=== PATIENT | male | born 1945 | race Caucasian/White ===

== ENCOUNTER 2018-01-14 11:50 | Day surgery (SDC) | payer MEDICARE ==
[~2018-01-14 11:50] MED LIST: LACTATED RINGERS 1,000 ML IV ONE
[2018-01-14] MEDS ORDERED: LACTATED RINGERS 1,000 ML IV ONE (13:04)
[2018-01-14] MEDS ORDERED: fentaNYL 250 MCG/5 ML VIAL IVP ONE (13:18)
[2018-01-14] MEDS ORDERED: MIDAZOLAM 2 MG/2 ML VIAL IVP ONE (13:18)
[2018-01-14 14:49] VITALS: BP 121/67
== END 2018-01-14 11:51 | disposition home or self-care (01) ==
LOC: SDS 11:50
PROVIDERS: ATTEND Internal Medicine
PROC: 0DJD8ZZ Inspection of Lower Intestinal Tract, Via Natural or Artificial Opening Endoscopic (ICD-10-PCS; principal; 2018-01-14 13:00)
DX: Z12.11 Encounter for screening for malignant neoplasm of colon (principal); Z53.8 Procedure and treatment not carried out for other reasons
CPT/HCPCS: 45378; J3010; J7120

== ENCOUNTER 2018-03-11 12:45 | Day surgery (SDC) | payer MEDICARE ==
[2018-03-11] MEDS ORDERED: LACTATED RINGERS 1,000 ML IV ONE (13:01)
[2018-03-11] MEDS ORDERED: MIDAZOLAM 2 MG/2 ML VIAL IVP ONE (14:17)
[2018-03-11] MEDS ORDERED: fentaNYL 250 MCG/5 ML VIAL IVP ONE (14:17)
[2018-03-11 14:56] VITALS: BP 123/72
== END 2018-03-11 12:46 | disposition home or self-care (01) ==
LOC: SDS 12:45
PROVIDERS: ATTEND Internal Medicine
PROC: 0DJD8ZZ Inspection of Lower Intestinal Tract, Via Natural or Artificial Opening Endoscopic (ICD-10-PCS; principal; 2018-03-11 14:00)
DX: Z12.11 Encounter for screening for malignant neoplasm of colon (principal); K57.30 Diverticulosis of large intestine without perforation or abscess without bleeding; K64.8 Other hemorrhoids
CPT/HCPCS: G0121; J3010; J7120

== ENCOUNTER 2018-11-13 15:36 | Outpatient (CLI) | payer MEDICARE | END 2018-11-13 15:37 | disposition critical access hospital (66) | LOC: EMS 15:36 | PROVIDERS: ATTEND Surgery | DX: R41.82 Altered mental status, unspecified (principal); S00.01XA Abrasion of scalp, initial encounter; M25.432 Effusion, left wrist; X58.XXXA Exposure to other specified factors, initial encounter | CPT/HCPCS: A0425; A0429 ==

== ENCOUNTER 2018-11-13 15:56 | Emergency (ER) | payer MEDICARE ==
--- NOTE | 2018-11-13 16:09 | ED Physician Documentation ---
PD HPI HEAD INJURY - Stated complaint Stated Complaint: FALL - Chief complaint Chief Complaint: Neuro - History obtained from History obtained from: Patient - History of Present Illness Mechanism of head injury: Blow (Not sure of the exact mechanism. He was home alone doing some chores and activities in the yard. He had come back from a metal [place] who had revised a metal ring the patient was using to repair his septic cover. He remembers returning back with it and then next remembers his and then EMS arriving to evaluate him. He is not sure the exact duration of time. His have been gone for an hour or so and returned to find him staring blankly at the garage door while he was sitting on the ground. He had an abrasion on the right top of the head and planes of pain in the left wrist. He is not able to say what had happened. He does recall feeling okay earlier in the day and did not have any remembrance of headache chest pain abdominal pain or lightheadedness.) Where head injury occurred: Home Timing - onset: How many hours ago (in the last hour or so), Today Location of injury: Right, Back Quality of pain: Aching Associated symptoms: AMS (He was having repetitive questioning as reported by his and by EMS en route.), Amnesia. No: Nausea / vomiting, Neck pain Symptoms worsen with: Palpation Contributing factors: No: Anticoagulated, Intoxicated Similar symptoms before: Has not had sx before Review of Systems Constitutional: denies: Fever, Chills Nose: denies: Rhinorrhea / runny nose, Congestion Throat: denies: Sore throat Cardiac: denies: Chest pain / pressure, Palpitations Respiratory: denies: Cough GI: denies: Abdominal Pain, Nausea, Vomiting, Diarrhea, Bloody / black stool Neurologic: reports: Headache (just at abrasion area superficially; no diffuse headache), Head injury. denies: Focal weakness, Numbness, Difficulty speaking, Near syncope Endocrine: denies: Easy bruising / bleeding PD PAST MEDICAL HISTORY - Past Medical History Cardiovascular: Hypertension, Murmur Respiratory: Sleep apnea Endocrine/Autoimmune: None GI: None : Kidney stones HEENT: Chronic hearing loss Psych: None Musculoskeletal: None Derm: None - Past Surgical History Past Surgical History: Yes HEENT: Cataracts, Other - Present Medications Home Medications: Ambulatory Orders Medication Instructions Recorded Confirmed Aspirin Chewable [[place] 81 mg PO DAILY 01/14/18 11/13/18 Aspirin] Lisinopril 10 mg PO DAILY 01/14/18 11/13/18 Multivitamin [Multiple Vitamins] 1 tab PO DAILY 03/11/18 - Allergies Allergies/Adverse Reactions: Allergies Allergy/AdvReac Type Severity Reaction Status Date / Time No Known Drug Allergies Allergy Verified 11/13/18 16:02 - Social History Does the pt smoke?: No Smoking Status: Never smoker Does the pt drink ETOH?: No Does the pt have substance abuse?: No - Immunizations Immunizations are current?: Yes - POLST Patient has POLST: No PD ED PE NORMAL - Vitals Vital signs reviewed: Yes - General General: Alert and oriented X 3, Well developed/nourished - HEENT HEENT: PERRL, EOMI, Pharynx benign, Other (right posterior top of head with abrasion, no laceration, and local tenderness. Neck full ROM without pain. 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, No motor deficit, No sensory deficit, Normal speech Eye Opening: Spontaneous Motor: Obeys Commands Verbal: Oriented GCS Score: 15 - Psych Psych: Normal mood Results - Vitals Vitals: Vital Signs - 24 hr 11/13/18 11/13/18 15:58 17:49 Temperature 36.0 C L Heart Rate 73 73 Respiratory 15 21 Rate Blood Pressure 190/110 H 148/90 H O2 Saturation 99 99 Oxygen O2 Source Room air - Labs Labs: Laboratory Tests 11/13/18 11/13/18 16:19 16:19 WBC 11.2 H RBC 4.55 L Hgb 14.6 Hct 43.1 MCV 94.7 H MCH 32.1 H MCHC 33.9 RDW 13.1 Plt Count 208 MPV 6.7 L Neut # (Auto) 9.9 H Lymph # (Auto) 0.5 L [place] # (Auto) 0.7 Eos # (Auto) 0.0 Baso # (Auto) 0.0 Absolute Nucleated RBC 0.00 Nucleated RBC % 0.0 Sodium 138 Potassium 4.0 Chloride 103 Carbon Dioxide 25 Anion Gap 10.0 BUN 22 H Creatinine 0.8 Estimated GFR (MDRD) 94 Glucose 98 Calcium 9.3 Total Bilirubin 0.9 AST 31 ALT 26 Alkaline Phosphatase 70 Total Protein 7.0 Albumin 4.4 Globulin 2.6 Albumin/Globulin Ratio 1.7 Lipase 30 - Rads (name of study) head CT Radiology: Prelim report reviewed (no acute process, no bleeding) left wrist xray Radiology: Prelim report reviewed (no fractures) PD MEDICAL DECISION MAKING - ED course Complexity details: reviewed results, considered differential (The patient had been feeling well earlier in the day and there is no history of lightheadedness or focal pains earlier. He does have an abrasion on the top of his head and shows apparent injury. It is not clear if he fell. His states he had returned from getting a piece of metal work done and it was just outside of the back of their truck. She states in the past the hatchback door had been hard to close and the patient has had to pull down on the door forcefully. She wonders if it might of accidentally hit the top of his head since it was not clear he had fallen per se. It does sound like he had some concussive symptoms that are improving on route to here and here in the ER. His head CT is normal. He has minimal headache and normal neuro at this point except is still not memory of the injury itself. He and his are comfortable heading home and shared decision is to discharge him.), d/w patient, d/w family () Departure - Departure Disposition: 01 Home, Self Care Clinical Impression: Head injury Qualifiers: Encounter type: initial encounter Qualified Code(s): S09.90XA - Unspecified injury of head, initial encounter Concussion Qualifiers: Encounter type: initial encounter Loss of consciousness presence/duration: with LOC of unspecified duration Qualified Code(s): S06.0X9A - Concussion with loss of consciousness of unspecified duration, initial encounter Left wrist sprain Qualifiers: Encounter type: initial encounter Qualified Code(s): S63.502A - Unspecified sprain of left wrist, initial encounter Condition: Stable Record reviewed to determine appropriate education?: Yes Instructions: ED Concussion, ED Sprain Wrist Follow-Up: Franko Clark MD [Primary Care Provider] - Comments: Rest without any vigorous activity for the next couple of days. Expect some headache and a little off balance and forgetful for a couple of days. Recheck if significant return of symptoms. Avoid driving, power tools, ladders, other dangerous situations for a day or 2 to make sure your coordination and thought process are good. Tylenol or ibuprofen if needed for pains. Progress use of the wrist as tolerated over the next few days to week. Discharge Date/Time: 11/13/18 17:57
[2018-11-13] MEDS ORDERED: ACETAMINOPHEN 325 MG TABLET PO STA (16:13)
[2018-11-13 16:25] LABS: BASOPHILS % (AUTO) 0.3 %; EOSINOPHILS % (AUTO) 0.4 %; HGB - HEMOGLOBIN 14.6 g/dL (14.0-18.0); LYMPHOCYTES # (AUTO) 0.5 10^3/uL (1.5-3.5); LYMPHOCYTES % (AUTO) 4.4 %; MEAN CORPUSCULAR HEMOGLOBIN 32.1 pg (27.0-31.0); MEAN CORPUSCULAR HGB CONC 33.9 g/dL (32.0-36.0); MEAN CORPUSCULAR VOLUME 94.7 fL (80.0-94.0); MEAN PLATELET VOLUME 6.7 fL (7.4-11.4); MONOCYTES # (AUTO) 0.7 10^3/uL (0.0-1.0); MONOCYTES % (AUTO) 6.1 %; NEUTROPHILS # (AUTO) 9.9 10^3/uL (1.5-6.6); NEUTROPHILS % (AUTO) 88.8 %; PLT - PLATELET COUNT 208 10^3/uL (130-450); RED BLOOD COUNT 4.55 10^6/uL (4.70-6.10); RED CELL DISTRIBUTION WIDTH 13.1 % (12.0-15.0); WHITE BLOOD COUNT 11.2 x10^3/uL (4.8-10.8)
[2018-11-13 16:41] LABS: ALBUMIN 4.4 g/dL (3.2-5.5); ALBUMIN/GLOBULIN RATIO 1.7 (1.0-2.2); BILIRUBIN,TOTAL 0.9 mg/dL (0.2-1.0); CALCIUM 9.3 mg/dL (8.5-10.3); CREATININE 0.8 mg/dL (0.6-1.2)
--- NOTE | 2018-11-13 16:50 | CT Report ---
Reason: head injury with concussive symptoms Procedure Date: 11/13/2018 Accession Number: [id number] / [id number] Procedure: CT - HEAD WO CPT Code: FULL RESULT: EXAM: CT HEAD EXAM DATE: 11/13/2018 04:39 PM. CLINICAL HISTORY: Headache and altered mental status from closed head injury. COMPARISON: None. TECHNIQUE: Multiaxial CT images were obtained from the foramen magnum to the vertex. Reformats: Sagittal and coronal. IV contrast: None. In accordance with CT protocol optimization, one or more of the following dose reduction techniques were utilized for this exam: automated exposure control, adjustment of mA and/or KV based on patient size, or use of iterative reconstructive technique. FINDINGS: Parenchyma: No intraparenchymal hemorrhage. No evidence of mass, midline shift, or CT findings of infarction. Garcia-white differentiation is distinct. Extraaxial Spaces: Normal for age. No subdural or epidural collections identified. Ventricles: Normal in size and position. Sinuses and Orbits: Imaged paranasal sinuses, orbits, and mastoids show no significant abnormality. Bones: No evidence of fracture or calvarial defect. Other: None. IMPRESSION: Normal head CT. [facility]
--- NOTE | 2018-11-13 16:51 | XRAY Report ---
Reason: fall with left wrist pain Procedure Date: 11/13/2018 Accession Number: [id number] / [id number] Procedure: XR - Wrist 4 View LT CPT Code: FULL RESULT: EXAM: LEFT WRIST RADIOGRAPHY EXAM DATE: 11/13/2018 04:41 PM. CLINICAL HISTORY: Fall with left wrist pain. COMPARISON: None. TECHNIQUE: 3 views. FINDINGS: Bones: Normal. No fractures or bone lesions. Joints: Normal. No subluxations. Soft Tissues: Normal. No soft tissue swelling. IMPRESSION: Normal wrist radiography. [facility]
[2018-11-13 17:50] VITALS: BP 148/90
== END 2018-11-13 17:57 | disposition home or self-care (01) ==
LOC: EDUNIT# → ED 15:56
DX: S06.0X9A Concussion with loss of consciousness of unspecified duration, initial encounter (principal); S63.502A Unspecified sprain of left wrist, initial encounter; S00.01XA Abrasion of scalp, initial encounter; X58.XXXA Exposure to other specified factors, initial encounter; Y93.89 Activity, other specified; Y92.009 Unspecified place in unspecified non-institutional (private) residence as the place of occurrence of the external cause; I10 Essential (primary) hypertension; Z79.82 Long term (current) use of aspirin
CPT/HCPCS: 36415; 70450; 73110; 80053; 83690; 85025; 99283; 99284; A9270